=== PATIENT | male | born 1995 | race Caucasian/White ===

== ENCOUNTER 2022-10-16 17:41 | Emergency (ER) | payer OTHER ==
[~2022-10-16] VITALS: Ht 180.3 cm; Wt 105.5 kg
[~2022-10-16 17:41] MED LIST: HYDR-34 PO
[2022-10-16 17:43] VITALS: BP 176/92
[2022-10-16] MEDS ORDERED: TETRACAINE 0.5% OPHTH SOLN 4 ML BTL (SINGLE DOSE ONLY) OP ONE (18:00)
[2022-10-16] MEDS ORDERED: VANCOMYCIN INJECTION 1,500 MG in NS IV 500 ML 500 ML IV STA (18:05)
[2022-10-16] MEDS ORDERED: ONDANSETRON 4 MG/2 ML (SDV) Z0FRAN IVP STA (18:05)
[2022-10-16] MEDS: TETANUS,DIPTH,PERTUSS P/F (BOOSTRIX) 0.5 ML VIAL IM ONE ×2 (18:07→18:14)
--- NOTE | 2022-10-16 18:16 | ED EENT ---
History of Present Illness General Chief Complaint: Trauma-Non Activation Stated Complaint: INJ TO EYE Source: patient History of Present Illness Date Seen by Provider: Oct 16, 2022 Time Seen by Provider: 17:41 Initial Comments 26 yo male presenting with injury to left eye. He had an chel wrench slip and hit him in the left eye. He reports this happened just prior to coming to the ED. He has not been able to see out of his left eye. He has a laceration to the medial aspect of globe and bleeding. He last ate at 11 am. He thinks his tetanus was last updated more than 5 years ago. He denies any allergies to medicine and no prescription medicines. He has bleeding from the surface of left eye and there is gross blood in the anterior chamber of his left eye. He has decreased vision from left eye. He says he can barely make out that I am shining a light to left eye. He reports pain is 4 out of 10 Timing/Duration: abrupt Severity: severe Location: eye (L) Prearrival Treatment: no prearrival treatment Associated Symptoms: No change in hearing, No cough, No drooling, No ear drainage, No facial pain/swelling, No fever, No malaise, No nasal congestion/drainage, No poor fluid intake, No poor solids intake, No sinus infection, No sore throat, No tooth pain, No voice change Allergies and Home Medications Allergies Coded Allergies: No Known Drug Allergies (Unverified , 12/28/12) Patient Home Medication List Home Medication List Reviewed: Yes Hydrocodone Bit/Acetaminophen (Lortab 7.5 Mg Tablet) 1 Ea Tablet, 1-2 EA PO Q 4 - 6 HR PRN, (Reported) Entered as Reported by: LUIS PASTRANA on 01/03/13 4301 Review of Systems Review of Systems Constitutional: no symptoms reported Eyes: See HPI, Vision Changes (decreased light sensitivity and vision from left eye) Ears: No Symptoms Reported Nose: no symptoms reported Mouth: no symptoms reported Throat: no symptoms reported Respiratory: no symptoms reported Cardiovascular: no symptoms reported Gastrointestinal: no symptoms reported Musculoskeletal: no symptoms reported Skin: no symptoms reported Neurological: Headache Hematologic/Lymphatic: Denies Blood Clots Past Omlphyt-Wigetn-Mmtqyz Hx Patient Social History Tobacco Use?: No Use of E-Cig and/or Vaping dev: No Substance use?: No Alcohol Use?: No Pt feels they are or have been: No Immunizations Up To Date Influenza Vaccine Up-to-Date: No; Not Current Past Medical History Surgery/Hospitalization HX: Denies Physical Exam Vital Signs Vital Signs - First Documented 10/16/22 17:43 Temp 35.3 Pulse 72 Resp 16 B/P (MAP) 176/92 (120) Pulse Ox 97 O2 Delivery Room Air Height, Weight, BMI Height: '" Weight: lbs. oz. kg; BMI Method: General Appearance: WD/WN, mild distress Eyes: right eye PERRL; left eye abnormal pupil (unable to visualize pupil with gross blood in anterior chamber), left eye hyphema, left eye ocular penetration (oozing left eye scleral laceration on medial aspect of globe), left eye vision changes (decreased acuity left eye unable to see objects and thinks he can see a little bit of light to left eye); bilateral eye EOMI Mouth/Throat: normal mouth inspection, pharynx normal Neck: non-tender, full range of motion, supple, normal inspection Cardiovascular: normal peripheral pulses, regular rate, rhythm Respiratory: chest non-tender, lungs clear, normal breath sounds Neurologic/Psychiatric: alert, oriented x 3 Skin: warm/dry Progress/Results/Core Measures Results/Orders My Orders Orders - JAZZ MIRANDA MD Dipht,Pertuss(Acell),Tet Adult (Boostrix (10/16/22 18:00) Tetracaine 0.5% Ophth Lisseth Sdv (Tetracai (10/16/22 18:00) Ct Orbit/Sella/Iac Wo (10/16/22 18:03) Vancomycin Injection (Vancomycin Injecti (10/16/22 18:05) Ondansetron Injection (Zofran Injectio (10/16/22 18:05) Nursing Communication (Order) (10/16/22 18:06) Medications Given in ED Current Medications Medications Dose Ordered Sig/Ghazala Route Start Time Stop Time Status Last Admin Dose Admin Diphtheria/ Tetanus/Acell Pertussis 0.5 ml ONCE ONCE IM 10/16/22 18:00 10/16/22 18:01 DC 10/16/22 18:14 0.5 ML Vital Signs/I&O 10/16/22 17:43 Temp 35.3 Pulse 72 Resp 16 B/P (MAP) 176/92 (120) Pulse Ox 97 O2 Delivery Room Air Progress Progress Note : Progress Note Potential diagnosis of left globe rupture, blood in anterior chamber of the left eye, left eye scleral laceration On physical exam it appeared that he had a globe rupture with scleral laceration on the medial aspect of his left eye. There is gross blood in the anterior chamber of the left eye and unable to visualize pupils or reaction to light. He thought he could maybe see some light with shining directly to his eye with a otoscope. After Tuesday when he last had anything to eat or drink and when his last tetanus shot was as well as if he was on any medications. I then advised him that I would need to get him to a hospital that has an processing lead to do what they could for his eye and see if any of his vision could be saved. I left the room to make phone calls and find out where I can get him to an processing lead. 1750 I checked with [facility] and they did not have ophthalmology on-call for trauma. They have an hydraulic press in operator that they could call but for an actual eye surgeon and trauma doctor he would need to go to a larger facility. 175 I placed a call to [facility] 1 call and spoke with Pablo RN. He said that they did not have ophthalmology on-call. 175 I called and spoke with Angle RN at [facility] in [place] and they did have an processing lead on-call, Dr. Marcelo. He was not immediately available and I was placed on hold while they reached out to him. However when they were able to reach him he does not manage traumatic globe injuries. 1806 I placed a call to [facility] to see if [facility] would have ophthalmology on-call for a traumatic globe injury. They did not but [facility] stated they had ophthalmology at [facility]. After giving him initial information I reached Dr. Prieto, the trauma surgeon on-call. I reviewed the presentation and exam with him. I advised him that I did update the patient's DTaP vaccination as IM injection as well as started vancomycin 1500 mg IV infusion and obtain a CT scan of the orbits as recommended by online medical reference up-to-date. After discussing the patient with him and the concern for globe rupture he accepted the patient to come to the ED at [facility] at 1815 and then I briefly spoke with the ED attending so he was aware of the patient. The left eye was bandaged with guaze and secured with Kerlix as I did not have an eye shield here. This was to protect the globe while waiting on EMS. Will have him go as a Stat Emergent transfer to [facility] for Ophtha lmology since the first 5 hospitals I contacted did not have Ophthalmology available. On my review of the CT scan images of the orbits without contrast he had hyperdensity in left globe and obvious deformity to left globe compared to the right. 1847 I reviewed Radiologist report on CT scan of orbits without contrast. They agreed that there was hyperdensity in left globe concerning for hemorrhage and orbit rupture. Diagnostic Imaging Diagonstic Imaging: CT Plain Films/CT/US/NM/MRI: other (orbits) Comments [facility] [place], [place] NAME: KATIA FONTANEZ MED REC#: [id number] PT STATUS: REG ER : 1995 PHYSICIAN: JAZZ MIRANDA MD ADMIT DATE: 10/16/22/ER FS Draft Date of Exam:10/16/22 CT ORBIT/SELLA/IAC WO PROCEDURE: CT orbit without contrast. TECHNIQUE: Multiple contiguous axial images were obtained through the facial bones without the use of intravenous contrast. Auto Exposure Controls were utilized during the CT exam to meet ALARA standards for radiation dose reduction. INDICATION: Trauma to the left eye. FINDINGS: The left globe is diffusely hyperdense. This is suspect for intraglobal hemorrhage. Posterior global structures are unremarkable. There is no edema. Nasal bones intact. The zygomatic arches are intact. Sinuses and mastoid air cells are clear. IMPRESSION: 1. Focal hyperdensity of the left globe suspect for internal hemorrhage and direct injury to the globe, itself. Recommend clinical correlation and ophthalmology consult. 2. No acute fracture. Dictated on workstation # [id number] Dict: 10/16/221828 Trans: 10/16/221837 PJ [id number] Interpreted by: MARTÍNEZ CAMPBELL MD Electronically signed by: Reviewed: Reviewed by Me (I reviewed the radiologist report at 1848) Departure Impression Primary Impression: Rupture of globe of left eye following blunt trauma Qualified Codes: S05.32XA - Ocular laceration without prolapse or loss of intraocular tissue, left eye, initial encounter Additional Impressions: Traumatic hyphema of left eye Qualified Codes: S05.12XA - Contusion of eyeball and orbital tissues, left eye, initial encounter Hemorrhage anterior chamber eye Qualified Codes: H21.02 - Hyphema, left eye Disposition: 02 XFER SHT-TRM HOSP Condition: Critical Transfer Transfer Reason: Exceeds level of care (Ophthalmology trauma care) Time Spoke to Accepting Phy: 18:15 Transfer Progress Notes I spoke with Dr. Prieto, trauma surgeon manager decision support, at [facility]. I reviewed the patient's presentation and his exam showing blood in the anterior chamber with laceration and globe rupture to the left eye. He had been given a tetanus booster as well as started vancomycin for antibiotics. Given 4 mg of Zofran to try and help prevent nausea from the eye injury. Dr. Prieto accepted the patient to come to the emergency department for the globe rupture and asked that the CT scan images to be clouded. He we will see the patient in the emergency department as a trauma and have ophthalmology get involved. They will look at the CT images while the patient is in transport. I also updated the ED attending about the patient coming to [facility] Transfer Facility: [facility] Method of Transfer: EMS Departure-Patient Inst. Referrals: NO,LOCAL PHYSICIAN (PCP/Family) Primary Care Physician Images Eye 1 - Laceration (slceral laceration with bleeding. Gross blood visualized in left anterior chamber and unable to visualize pupil ) JAZZ MIRANDA MD Oct 16, 2022 18:16
--- NOTE | 2022-10-16 18:40 | Diagnostic Imaging Report ---
PROCEDURE: CT orbit without contrast. TECHNIQUE: Multiple contiguous axial images were obtained through the facial bones without the use of intravenous contrast. Auto Exposure Controls were utilized during the CT exam to meet ALARA standards for radiation dose reduction. INDICATION: Trauma to the left eye. FINDINGS: The left globe is diffusely hyperdense. This is suspect for intraglobal hemorrhage. Posterior global structures are unremarkable. There is no edema. Nasal bones intact. The zygomatic arches are intact. Sinuses and mastoid air cells are clear. IMPRESSION: 1. Focal hyperdensity of the left globe suspect for internal hemorrhage and direct injury to the globe, itself. Recommend clinical correlation and ophthalmology consult. 2. No acute fracture. Dictated by: Dictated on workstation # [id number]
== END 2022-10-16 18:36 | disposition short-term general hospital (02) ==
LOC: EDUNIT# 17:41 → ER FS 17:44
DX: S05.32XA Ocular laceration without prolapse or loss of intraocular tissue, left eye, initial encounter (principal); Z23 Encounter for immunization; Z28.310 Unvaccinated for COVID-19; W20.8XXA Other cause of strike by thrown, projected or falling object, initial encounter
CPT/HCPCS: 70480; 90715